=== PATIENT | female | born 1985 | race Caucasian/White ===

== ENCOUNTER 2020-08-09 23:11 | Emergency (ER) | payer OTHER ==
[~2020-08-09] VITALS: Ht 160 cm; Wt 62.4 kg
--- NOTE | 2020-08-09 23:14 | PHYS DOC ---
Past History Past Medical History: Arthritis, Fibromyalgia Past Medical History Hx. rheumatoid General Adult HPI: HPI: ".. I ve had these neck spasm s before.. but when I took the flexeril. they always resolved... this time the spasms have not gotten better.. this all started about a week ago.. when I woke up.. and my neck was nathalie crooked..and my arm where above my head... I see the doctor at [facility].. he put on Flexeril.. but. . I have not gotten better..." Patient is a 34 year old female who presents with neck spasms and pain x 1 week. Patient does have a history of rheumatological inflammatory joint issues. Patient has history of previous episode of torticollis which was relieved by Flexeril. No recent travel. No problems with defecation or urination. No history of trauma. No specific ill contacts. Pt. follows with [facility]. Review of Systems: Review of Systems: Constitutional: Denies fever or chills Eyes: Denies change in visual acuity HENT: Complains of bilateral torticollis muscle spasms Respiratory: Denies cough or shortness of breath Cardiovascular: Denies chest pain or edema GI: Denies abdominal pain, nausea, vomiting, bloody stools or diarrhea : Denies dysuria Musculoskeletal: Denies back pain or joint pain Integument: Denies rash Neurologic: Denies headache, focal weakness or sensory changes Endocrine: Denies polyuria or polydipsia Lymphatic: Denies swollen glands Psychiatric: Denies depression or anxiety Family History: Family History: Noncontributory to presentation Current Medications: Current Meds: See nursing for home meds Allergies: Allergies: Sulfa and amoxicillin Physical Exam: PE: Constitutional: Moderate acute distress, non-toxic appearance. [] HENT: Normocephalic, atraumatic, bilateral external ears normal, oropharynx moist, no oral exudates, nose normal. [] Eyes: PERRLA, EOMI, conjunctiva normal, no discharge. [] Neck: Limited range of motion, bilateral trapezius muscle spasms and tenderness, supple, no stridor. [] Cardiovascular:Heart rate regular rhythm, no murmur [] Lungs & Thorax: Bilateral breath sounds equal apex on auscultation [] Abdomen: Bowel sounds normal, soft, no tenderness, no masses, no pulsatile masses. [] Skin: Warm, dry, no erythema, no rash. [] Back: No tenderness, no CVA tenderness. [] Extremities: No tenderness, no cyanosis, no clubbing, ROM intact, no edema. [] Neurologic: Alert and oriented X 3, normal motor function, normal sensory function, no focal deficits noted. DTRs +2 patella and brachial. Psychologic: Affect anxious, judgement normal, mood normal. [] EKG: EKG: [] Radiology/Procedures: Radiology/Procedures: CT shows no findings of fracture. Mild arthritic changes. See formal report when available [] Heart Score: Risk Factors: Risk Factors: DM, Current or recent (<one month) smoker, HTN, HLP, family history of CAD, obesity. Risk Scores: Score 0 - 3: 2.5% MACE over next 6 weeks - Discharge Home Score 4 - 6: 20.3% MACE over next 6 weeks - Admit for Clinical Observation Score 7 - 10: 72.7% MACE over next 6 weeks - Early Invasive Strategies Course & Med Decision Making: Course & Med Decision Making Pertinent Labs and Imaging studies reviewed. (See chart for details) Keep follow up with primary care. Take meds as previously directed. Take tylenol and ibuprofen for pain. Marked pain take Vicoprofen. Consider follow- up with MRI if no improvement. 1. Torticollis [] Leonarda Disclaimer: [place] Disclaimer: This electronic medical record was generated, in whole or in part, using a voice recognition dictation system. Departure Departure: Referrals: RODRIGO KIDD (PCP) Scripts Hydrocodone/Ibuprofen (HYDROCODONE-IBUPROFEN 7.5-200 ) 1 Each Tablet 1 TAB PO PRN Q6HRS PRN for PAIN, #30 TAB 0 Refills Prov: AIDE ROY MD 08/10/20 Leonarda Disclaimer This chart was dictated in whole or in part using Voice Recognition software in a busy, high-work load, and often noisy Emergency Department environment. It may contain unintended and wholly unrecognized errors or omissions. AIDE ROY MD Aug 09, 2020 23:14
[2020-08-10] MEDS: methylPREDNISolone ACETATE 40 MG/ML VIAL. IM ONE (00:22)
[2020-08-10] MEDS ORDERED: HYDR-1179 PO (00:55)
[2020-08-10 01:23] LABS: BARBITURATES NEG (NEG); BENZODIAZEPINES NEG (NEG); CANNABINOIDS NEG (NEG); COCAINE NEG (NEG); METHADONE NEG (NEG); OPIATES NEG (NEG); PHENCYCLIDINE NEG (NEG)
[2020-08-10 01:27] LABS: CLARITY,URINE HAZY; COLOR,URINE PINK
[2020-08-10 01:28] LABS: BACTERIA,URINE 0 /HPF (0-FEW); RBC,URINE >40 /HPF (0-2); SQUAMOUS EPITHELIAL CELL,UR FEW /LPF; WBC,URINE OCC /HPF (0-4)
[2020-08-10 01:33] LABS: AMPHETAMINE/METHAMPHETAMINE NEG (NEG)
[2020-08-10 01:52] LABS: U PREG PATIENT NEGATIVE (NEG)
[2020-08-10 01:53] VITALS: BP 122/82
--- NOTE | 2020-08-10 14:42 | RAD ---
History:Reason: torcolis / Spl. Instructions: / History: Technique: Noncontrast CT imaging was performed of the cervical spine. Multiplanar images are reviewed. Exposure: One or more of the following individualized dose reduction techniques were utilized for this examination: 1. Automated exposure control 2. Adjustment of the mA and/or kV according to patient size 3. Use of iterative reconstruction technique. Comparison: None Findings: Amorphous calcifications superior to the dens and adjacent to the left aspect of the dens. No evidence of destructive changes of the adjacent dense, C1 or occipital condyle. No significant mass effect. Normal vertebral body height and alignment. No acute fracture. Mild degenerative disc changes most prominent C4-C5 and C5-C6. No high-grade canal or neuroforaminal narrowing. Soft tissues unremarkable. Impression: 1. No acute fracture or subluxation of the cervical spine. 2. Amorphous nonspecific calcifications adjacent to the dens, potentially incidental. Calcifications in this region can be seen with crown dens syndrome although not diagnostic. Recommend further clinical evaluation and follow-up as clinically indicated. 3. Mild cervical spondylosis. MTDD
== END 2020-08-10 01:54 | disposition home or self-care (01) ==
LOC: ER 23:11
DX: M43.6 Torticollis (principal); M19.90 Unspecified osteoarthritis, unspecified site; M79.7 Fibromyalgia; Z88.2 Allergy status to sulfonamides; Z88.1 Allergy status to other antibiotic agents
CPT/HCPCS: 36415; 72125; 80307; 81001; 81025; 96372; 99284; J1030